=== PATIENT | male | born 1940 | race Hispanic/Latino ===

== ENCOUNTER 2016-10-22 04:21 | Emergency (ER) | payer MEDICARE | END 2016-10-22 04:39 | disposition E | LOC: ED 04:21 | PROC: 5A12012 Performance of Cardiac Output, Single, Manual (ICD-10-PCS; principal; 2016-10-22) | DX: I46.9 Cardiac arrest, cause unspecified (principal); I25.10 Atherosclerotic heart disease of native coronary artery without angina pectoris; J84.10 Pulmonary fibrosis, unspecified; Z95.1 Presence of aortocoronary bypass graft ==